=== PATIENT | male | born 1960 | race Caucasian/White ===

== ENCOUNTER 2019-05-20 15:53 | Outpatient (CLI) | payer OTHER, SELFPAY ==
[2019-05-20 16:17] LABS: Basophils # 0.1 10^3/uL (0.0-0.1); Basophils % 0.9 %; Eosinophils # 0.5 10^3/uL (0.0-0.8); Eosinophils % 6.1 %; Hematocrit 43.7 % (42.0-52.0); Hemoglobin 14.4 g/dL (11.7-16.6); Lymphocytes # 2.9 10^3/uL (0.8-4.8); Lymphocytes % 36.1 %; Mean Corpuscular Hemoglobin 31.5 pg (28.0-34.0); Mean Corpuscular Volume 95.6 fL (80-94); Mean Platelet Volume 9.1 fL (7.4-10.4); Monocytes # 0.7 10^3/uL (0.2-0.9); Monocytes % 8.8 %; Neutrophils # 3.8 10^3/uL (1.8-7.7); Neutrophils % 47.8 %; Nucleated Red Blood Cells % 0 %; Platelet Count 294 10^3/cmm (130-400); Red Blood Count 4.57 10^6/uL (4.1-5.3); Red Cell Distribution Width 13.2 % (12.1-15.1); White Blood Count 7.9 10^3/uL (4.0-10.0)
[2019-05-20 16:32] LABS: Alanine Aminotransferase 20 U/L (0-41); Albumin Level 4.2 g/dL (3.5-5.2); Alkaline Phosphatase 99 IU/L (40-130); Anion Gap 14.4 (5-19); Aspartate Amino Transferase 24 U/L (0-40); Blood Urea Nitrogen 19 mg/dL (6-20); Calcium 9.9 mg/dL (8.5-10.5); Carbon Dioxide 29 mmol/L (22-29); Chloride 105 mmol/L (98-107); Globulin 3.2 g/dL (1.3-4.6); Glomerular Filtration Rate 68.5 mL/min (90-130); Glucose 88 mg/dL (65-115); Potassium 4.4 mmol/L (3.5-5.1); Sodium 144 mmol/L (136-145); Total Bilirubin 0.2 mg/dL (0.15-1.2); Total Protein 7.4 g/dL (6.6-8.7)
== END 2019-05-20 15:54 | disposition home or self-care (01) ==
LOC: LAB 15:58
PROVIDERS: Family Provider Family Medicine; PCP Nurse Practitioner Family; Visit Provider Internal Medicine Critical Care Medicine
DX: J44.9 Chronic obstructive pulmonary disease, unspecified (principal)
CPT/HCPCS: 80053; 85025

== ENCOUNTER → 2021-09-20 09:06 | Outpatient (BNVA) | payer BC, SELFPAY | PROVIDERS: Family Provider Family Medicine; PCP Family Medicine Adult Medicine; Visit Provider Internal Medicine Critical Care Medicine | DX: J44.9 Chronic obstructive pulmonary disease, unspecified (principal); F17.210 Nicotine dependence, cigarettes, uncomplicated; J30.2 Other seasonal allergic rhinitis; J45.909 Unspecified asthma, uncomplicated; R06.02 Shortness of breath | CPT/HCPCS: 36415; 82785; 86003; 99204 ==

== ENCOUNTER 2021-11-24 11:30 | Outpatient (CLI) | payer BC, MEDICAID, SELFPAY | END 2021-11-24 11:31 | disposition home or self-care (01) | LOC: SLEEP 11-25 14:53 | PROVIDERS: Family Provider Family Medicine; PCP Family Medicine Adult Medicine; Visit Provider Internal Medicine Critical Care Medicine | DX: J44.9 Chronic obstructive pulmonary disease, unspecified (principal) | CPT/HCPCS: 94762 ==

== ENCOUNTER 2022-01-05 07:14 | Outpatient (CLI) | payer MEDICARE, BC, MEDICAID, SELFPAY ==
--- NOTE | 2022-01-05 07:22 | CT_ITS ---
WS: [id number] LDCT LUNG CANCER SCREENING TECHNIQUE: Noncontrast CT of the chest with coronal and sagittal reformatted images. CLINICAL INFORMATION: Lung cancer screening COMPARISON: None. DLP: 75.79 mGy.cm DIvol: Mean CTDIvol: 1.60 (mGy) All CT scans at [facility] use at least one of these dose optimization techniques: automat ed exposure control; mA and/or kV adjustment per patient size (includes targeted exams where dose is matched to clinical indication); or iterative reconstruction. FINDINGS: No suspicious pulmonary parenchymal opacities. Calcified granuloma RIGHT lower lobe. No mediastinal or hilar lymphadenopathy. Normal caliber thoracic aorta. Aortic calcification. Coronary calcification. No axillary lymphadenopathy.Adrenal glands are normal. Normal GE junction. Mild thoracic kyphosis. Chronic anterior wedging mid thoracic spine. CT/CT lung screening [id number] IMPRESSION: LUNG-RADS: 1-Negative FOLLOW UP: 12 Month: Continue annual screening with LDCT
--- NOTE | 2022-01-05 13:12 | PFTS_ITS ---
Date of Study:01/05/22 Date of Dictation: MECHANICS: Forced vital capacity (FVC) is reduced. Forced expiratory volume in one second (FEV1) is reduced. FEV1/FVC is reduced. FLOW VOLUME LOOP: Reduced flow at all lung volumes with significant scooping. LUNG VOLUMES: Total lung capacity (TLC) is normal. Residual volume (RV) is increased. DIFFUSING CAPACITY FOR CARBON MONOXIDE: Not measured. INTERPRETATION: The postbronchodilator spirometry is consistent with severe airflow obstruction. There is a significant postbronchodilator response. Lung volumes are consistent with air trapping. Gas exchange (DLCO) was not measured. MTDD
== END 2022-01-05 07:15 | disposition home or self-care (01) ==
LOC: RT 07:15
PROVIDERS: Family Provider Family Medicine; PCP Family Medicine Adult Medicine; Visit Provider Internal Medicine Critical Care Medicine
DX: J44.9 Chronic obstructive pulmonary disease, unspecified (principal); F17.210 Nicotine dependence, cigarettes, uncomplicated; Z12.2 Encounter for screening for malignant neoplasm of respiratory organs
CPT/HCPCS: 71271; 94060; 94618; 94726; 94729; J7611

== ENCOUNTER → 2023-02-01 13:40 | Outpatient (BNVA) | payer MEDICARE, BC, MEDICAID, SELFPAY | PROVIDERS: Family Provider Family Medicine; PCP Family Medicine Adult Medicine; Visit Provider Family Medicine Adult Medicine | DX: I10 Essential (primary) hypertension (principal); J44.9 Chronic obstructive pulmonary disease, unspecified; R94.4 Abnormal results of kidney function studies; N40.1 Benign prostatic hyperplasia with lower urinary tract symptoms; N13.8 Other obstructive and reflux uropathy | CPT/HCPCS: 80053; 84443; 85025; G0103 ==

== ENCOUNTER → 2023-03-29 14:01 | Outpatient (BNVA) | payer MEDICARE, SELFPAY | PROVIDERS: Family Provider Family Medicine; PCP Family Medicine Adult Medicine; Visit Provider Internal Medicine Pulmonary Disease | DX: J43.2 Centrilobular emphysema (principal); J82.83 Eosinophilic asthma; Z12.2 Encounter for screening for malignant neoplasm of respiratory organs | CPT/HCPCS: 99214 ==

== ENCOUNTER 2023-04-18 14:09 | Oncology outpatient (recurring) (ONCR) | payer MEDICARE, MEDICAID, SELFPAY ==
[2023-04-18 14:28] VITALS: BP 104/81; PULSE 105; RESP 18; TEMP 36.7; O2SAT 97
[2023-04-18 15:15] VITALS: BP 111/73; PULSE 82; RESP 16; TEMP 36.8; O2SAT 95
== END 2023-05-03 23:59 | disposition home or self-care (01) ==
PROVIDERS: Family Provider Family Medicine; PCP Family Medicine Adult Medicine; Visit Provider Family Medicine Adult Medicine
DX: J82.83 Eosinophilic asthma (principal)
CPT/HCPCS: 96372

== ENCOUNTER 2023-05-18 09:46 | Outpatient (CLI) | payer MEDICARE, SELFPAY ==
--- NOTE | 2023-05-18 10:00 | CT_ITS ---
WS: [id number] LDCT LUNG CANCER SCREENING HISTORY: Z87.891 - Personal history of nicotine dependence TECHNIQUE: Axial imaging performed from the apices to 1 cm below the costophrenic angles. Coronal and sagittal reformats are submitted with axial MIP series. All CT scans at [facility] use at least one of these dose optimization techniques: automated exposure control; mA and/or kV adjustment per patient size (includes targeted exams where dose is matched to clinical indication); or iterativ e reconstruction. DLP: 55.19 mGy.cm DIvol: Mean CTDIvol: 0.90 (mGy) COMPARISON: 01/05/2022 Diagnostic quality: Satisfactory Lungs: Mild pulmonary hyperexpansion. Benign granuloma in the posterior RIGHT lower lobe. Small amoun t of scarring at the lingular apex. No pneumonia. No pulmonary nodule. No endobronchial lesions. Heart: Normal size heart with no pericardial effusion.. Scattered coronary artery calcifications. Other findings: Mild atherosclerosis aorta. No mediastinal or hilar adenopathy. No adrenal mass. IMPRESSION: CT/CT lung screening [id number] LUNG-RADS: 1-Negative FOLLOW UP: 12 Month: Continue annual screening with LDCT OTHER FINDINGS (S MODIFIER): None.
== END 2023-05-18 09:47 | disposition home or self-care (01) ==
LOC: RAD 09:46
PROVIDERS: PCP Family Medicine Adult Medicine; Visit Provider Internal Medicine Pulmonary Disease
DX: Z12.2 Encounter for screening for malignant neoplasm of respiratory organs (principal); Z87.891 Personal history of nicotine dependence; J84.10 Pulmonary fibrosis, unspecified
CPT/HCPCS: 71271

== ENCOUNTER → 2023-08-10 07:53 | Outpatient (BNVA) | payer MEDICARE, MEDICAID, SELFPAY | PROVIDERS: Family Provider Family Medicine; PCP Family Medicine Adult Medicine; Visit Provider Internal Medicine Pulmonary Disease | DX: J43.2 Centrilobular emphysema (principal); J82.83 Eosinophilic asthma; J44.9 Chronic obstructive pulmonary disease, unspecified; F17.290 Nicotine dependence, other tobacco product, uncomplicated | CPT/HCPCS: 99214 ==

== ENCOUNTER 2024-03-18 12:31 | Outpatient (RCR) | payer MEDICARE, MEDICAID, SELFPAY | END 2024-04-02 23:59 | disposition home or self-care (01) | LOC: SPT 12:31 | PROVIDERS: Family Provider Family Medicine; Visit Provider Family Medicine | DX: M54.50 Low back pain, unspecified (principal); G89.29 Other chronic pain | CPT/HCPCS: 97110; 97161 ==

== ENCOUNTER 2024-03-21 16:06 | Outpatient (CLI) | payer MEDICARE, MEDICAID, SELFPAY ==
--- NOTE | 2024-03-21 16:14 | XRR_ITS ---
PROCEDURE INFORMATION: Exam: XR Left Hand Exam date and time: 03/21/2024 4:50 PM Age: 64 years old Clinical indication: Pain; Hand; Left; Additional info: L thumb mcp pain TECHNIQUE: Imaging protocol: Radiologic exam of the left hand. Views: 3 or more views. COMPARISON: No relevant prior studies available. FINDINGS: Bones/joints: No fracture or dislocation is appreciated. There are severe degenerative changes with joint space narrowing and osteophyte formation involving the 1st carpometacarpal joint. There is a lesser degree of osteoarthritis involving the articulation of the distal pole of the scaphoid with the trapezium. Mild osteoarthritic changes noted involving the 1st MCP joint and IP joints. Bony mineralization is normal. Soft tissues: Normal. XR/XR hand LT min 3V* [id number] IMPRESSION: 1. Severe osteoarthritis involving the 1st carpometacarpal joint.
--- NOTE | 2024-03-21 16:14 | XRR_ITS ---
PROCEDURE INFORMATION: Exam: XR Lumbosacral Spine Exam date and time: 03/21/2024 4:50 PM Age: 64 years old Clinical indication: Low back pain; Additional info: Chronic low back pain TECHNIQUE: Imaging protocol: Radiologic exam of the lumbosacral spine. Views: 2 or 3 views. COMPARISON: No relevant prior studies available. FINDINGS: Bones/joints: There are 5 [id number]-svm-[id number] lumbar vertebral bodies. There is a scoliotic curvature convex right. No subluxations are identified. No fractures are noted. There is disc space narrowing with osteophyte formation at L2-L3, L3-L4, L4-L5. There are degenerative changes involving the lower lumbar facets. SI joints are normal. Soft tissues: Unremarkable. XR/XR lumbar spine 2-3V* [id number] IMPRESSION: 1. Scoliotic curvature convex right. 2. Spondylosis.
== END 2024-03-21 16:07 | disposition home or self-care (01) ==
LOC: RAD 16:12
PROVIDERS: Family Provider Family Medicine; PCP Family Medicine; Visit Provider Family Medicine
DX: M48.061 Spinal stenosis, lumbar region without neurogenic claudication (principal); M41.86 Other forms of scoliosis, lumbar region; M51.360 Other intervertebral disc degeneration, lumbar region with discogenic back pain only; M25.78 Osteophyte, vertebrae; M19.042 Primary osteoarthritis, left hand; M25.742 Osteophyte, left hand
CPT/HCPCS: 72100; 73130

== ENCOUNTER 2024-04-03 06:00 | Outpatient (RCR) | payer MEDICARE, SELFPAY | END 2024-05-03 23:59 | disposition home or self-care (01) | LOC: SPT 06:00 | PROVIDERS: Family Provider Family Medicine; PCP Family Medicine; Visit Provider Family Medicine | DX: M54.50 Low back pain, unspecified (principal); G89.29 Other chronic pain | CPT/HCPCS: 97110 ==

== ENCOUNTER 2024-05-04 06:00 | Outpatient (RCR) | payer MEDICARE, SELFPAY | END 2024-05-31 23:59 | disposition home or self-care (01) | LOC: SPT 06:00 | PROVIDERS: Family Provider Family Medicine; PCP Family Medicine; Visit Provider Family Medicine | DX: M54.50 Low back pain, unspecified (principal); G89.29 Other chronic pain | CPT/HCPCS: 97110; 97164 ==

== ENCOUNTER → 2024-05-10 10:54 | Outpatient (BNVA) | payer MEDICARE, SELFPAY | PROVIDERS: Family Provider Family Medicine; PCP Family Medicine; Visit Provider Family Medicine | DX: M54.50 Low back pain, unspecified (principal); G89.29 Other chronic pain; M47.819 Spondylosis without myelopathy or radiculopathy, site unspecified; Z87.891 Personal history of nicotine dependence; I10 Essential (primary) hypertension; N40.1 Benign prostatic hyperplasia with lower urinary tract symptoms; J82.83 Eosinophilic asthma; J43.2 Centrilobular emphysema; R53.83 Other fatigue; Z12.5 Encounter for screening for malignant neoplasm of prostate; Z72.89 Other problems related to lifestyle; Z76.89 Persons encountering health services in other specified circumstances; J30.1 Allergic rhinitis due to pollen | CPT/HCPCS: 80053; 80061; 82607; 84443; 85025; G0103 ==

== ENCOUNTER 2024-05-20 09:56 | Outpatient (CLI) | payer MEDICARE, SELFPAY ==
--- NOTE | 2024-05-20 10:00 | CT_ITS ---
WS: [id number] LDCT LUNG CANCER SCREENING TECHNIQUE: Noncontrast CT of the chest with coronal and sagittal reformatted images. CLINICAL INFORMATION: perez dep kylie; 93pk yr hx; screening COMPARISON: 05/18/2023 DLP: 51.81 mGy.cm DIvol: Mean CTDIvol: 1.00 (mGy) All CT scans at [facility] use at least one of these dose optimization techniques: automated exposure control; mA and/or kV adjustment per patient size (includes targeted exams where dose is matched to clinical indication); or iterative reconstruction. FINDINGS: Mild hyperinflation. Few calcified granulomas. Wedge-shaped groundglass opacity LEFT lower lobe likely inflammatory measuring 1.7 cm. Recommend 3-month follow-up. Mild aortic calcification. No mediastinal or hilar lymphadenopathy. Coronary calcification. Mild thoracic curve and kyphosis. Hypertrophic changes thoracic spine. Adrenal glands are normal. Normal GE junction. CT/CT lung screening [id number] IMPRESSION: New wedge-shaped groundglass opacity LEFT lower lobe likely inflamm atory. Recommend 3-month follow-up. LUNG-RADS: 3-Probably Benign FOLLOW UP: 3 Month LDCT
== END 2024-05-20 09:57 | disposition home or self-care (01) ==
PROVIDERS: PCP Family Medicine; Visit Provider Family Medicine
DX: Z12.2 Encounter for screening for malignant neoplasm of respiratory organs (principal); Z87.891 Personal history of nicotine dependence; R97.20 Elevated prostate specific antigen [PSA]; R91.8 Other nonspecific abnormal finding of lung field; J84.10 Pulmonary fibrosis, unspecified; I70.0 Atherosclerosis of aorta; I25.10 Atherosclerotic heart disease of native coronary artery without angina pectoris; M43.8X4 Other specified deforming dorsopathies, thoracic region; M40.294 Other kyphosis, thoracic region; R93.7 Abnormal findings on diagnostic imaging of other parts of musculoskeletal system
CPT/HCPCS: 71271; 84154

== ENCOUNTER 2024-08-19 11:51 | Outpatient (CLI) | payer MEDICARE, SELFPAY ==
--- NOTE | 2024-08-19 12:00 | CT_ITS ---
WS: [id number] CT chest wo con [id number] HISTORY: 3 month f/u Left lung abnormal on LDCT TECHNIQUE: Axial imaging performed through the thorax. Coronal and sagittal reformats are submitted. All CT scans at [facility] use at least one of these dose optimization techniques: automated exposure control; mA and/or kV adjustment per patient size (includes targeted exams where dose is matched to clinical indication); or iterative reconstruction. CONTRAST: None DLP: 260.53 mGy.cm COMPARISON: 05/20/2024 Lungs and central airway: Previously described wedge-shaped groundglass attenuation in the LEFT lower lobe has completely resolved. There was an additional area of smaller groundglass attenuation in the LEFT lower lobe which is also resolved. Lungs are hyperinflated from chronic emphysema. Partially calcified RIGHT lower lobe 6 mm pulmonary nodule is stable. Pleura: Normal. No pleural effusion. Heart and pericardium: Normal size heart with no pericardial effusion. Mediastinum and connie: No adenopathy. Vessels: Moderate atherosclerotic plaque within the thoracic aorta. Plaque extends into the coronary arteries. Normal size pulmonary artery. Chest wall and lower neck: No soft tissue masses. Upper abdomen: Small hiatal hernia. No adrenal mass. Osseous structures: Mild thoracic spondylosis. CT/CT chest wo con [id number] IMPRESSION: 1. Complete interval resolution of the groundglass attenuation in the LEFT low er lobe since 05/20/2024. 2. Benign partially calcified granuloma RIGHT lower lobe. 3. No mediastinal or hilar adenopathy. 4. Moderate atherosclerotic plaque within the thoracic aorta and coronary eric ashvin. Recommendation: Return to annual low-dose lung screening CT evaluation.
== END 2024-08-19 11:52 | disposition home or self-care (01) ==
LOC: RAD 11:53
PROVIDERS: Family Provider Family Medicine; PCP Family Medicine; Visit Provider Family Medicine
DX: J98.4 Other disorders of lung (principal); J43.8 Other emphysema; R91.1 Solitary pulmonary nodule; I70.0 Atherosclerosis of aorta; I25.10 Atherosclerotic heart disease of native coronary artery without angina pectoris; K44.9 Diaphragmatic hernia without obstruction or gangrene; M40.294 Other kyphosis, thoracic region; J84.10 Pulmonary fibrosis, unspecified
CPT/HCPCS: 71250

== ENCOUNTER → 2024-10-21 09:00 | Outpatient (BNVA) | payer MEDICARE, SELFPAY | PROVIDERS: PCP Family Medicine; Visit Provider Student in an Organized Health Care Education/Training Program | DX: K40.90 Unilateral inguinal hernia, without obstruction or gangrene, not specified as recurrent (principal) | CPT/HCPCS: 99204 ==

== ENCOUNTER → 2024-10-25 10:26 | Outpatient (BNVA) | payer MEDICARE, SELFPAY | PROVIDERS: PCP Family Medicine; Visit Provider Family Medicine | DX: Z01.818 Encounter for other preprocedural examination (principal) | CPT/HCPCS: 80053; 85007; 85027 ==

== ENCOUNTER 2024-11-13 10:19 | Day surgery (SDC) | payer MEDICARE, SELFPAY ==
[2024-11-13] VITALS (9 sets, daily range): BP systolic 95–132; BP diastolic 60–80; PULSE 63–83; RESP 13–18; TEMP 36.2–36.6; O2SAT 94–100; BMI 23.0
--- NOTE | 2024-11-13 10:44 | ANES.PREANE2 ---
Pre-Anesthetic Assessment Height/Weight: Height 5 ft 4 in Preop Diagnosis: inguinal hernia Operation Date: 11/13/24 12:55 Proposed Procedures p RIGHT Open Inguinal Hernia Repair w/ Mesh 37305 K40.90(Right) - Braulio Pierson MD Was Beta Mary Ann taken within 24 hours: N/A Was Clonidine taken within 24 hours: N/A Social Tobacco and No alcohol Exam alert, oriented x 3 and regular rate & rhythm Airway Submandibular: within normal limits Cervical ROM: within normal limits Mallampati: Class III Comments: Comments: edentulous, white plaque on tongue Anesthetic Plan ASA status: 3 Anesthesia: General Other: No prior issues with anesthesia NPO since yesterday evening History of GERD, controlled with omeprazole COPD, current smoker Recent labs 10/25/2024 reviewed acceptable for procedure Plan for general anesthesia Medications/Allergies Home Medications ?Medication ?Instructions ?Recorded ?Confirmed ?Last Taken ?Type Portable, Battery Operated, #1 ea 01/04/22 11/04/24 Unknown Rx nebulizer, and Supplies. albuterol sulfate 2.5 mg/3 mL See Rx Instructions .Route 08/09/23 11/12/24 11/11/24 Rx (0.083 %) solution for nebulization .COMPLEX #540 mL albuterol sulfate 90 mcg/actuation 2 inh inhalation Q4H PRN shortness 02/27/24 11/12/24 11/12/24 Rx aerosol inhaler (Ventolin HFA) of breath or wheezing #54 grams umeclidinium 62.5 mcg/actuation 1 inh inhalation DAILY #30 ea 07/11/24 11/12/24 11/12/24 Rx blister powder for inhalation (Incruse Ellipta) celecoxib 200 mg capsule 200 mg PO DAILY #30 caps 10/07/24 11/12/24 11/08/24 Rx tadalafil 5 mg tablet (Cialis) 5 mg PO DAILY #30 tabs 10/07/24 11/12/24 11/08/24 Rx montelukast 10 mg tablet 10 mg PO DAILY PRN Allergy Symptoms 10/25/24 11/12/24 11/12/24 History fluticasone propionate 50 1 spray intranasal BID #16 grams 11/04/24 11/12/24 11/12/24 Rx mcg/actuation nasal spray,suspension (Allergy Relief (fluticasone)) omeprazole 40 mg capsule,delayed 40 mg PO QAM #90 caps 11/04/24 11/12/24 11/12/24 Rx release tamsulosin 0.4 mg capsule 0.4 mg PO DAILY 11/12/24 11/12/24 11/12/24 History Allergies Allergy/AdvReac Type Severity Reaction Status Date / Time lactose Allergy Intermediate ALGY-Difficulty Verified 11/12/24 15:00 Breathing COUNT INCLUDES THE [facility] Anesthesia Medical History (Updated 11/04/24 @ 13:57 by Tennille Gregorio MD) Gastroesophageal reflux disease with hiatal hernia Esophageal dysphagia Right inguinal hernia Osteoarthritis of metacarpophalangeal (MCP) joint of left thumb Lung abnormality on LDCT 2..25 LLL; f/u 5. gone--so next LDCT due 08.20.25 Abnormal PSA Eosinophilic asthma on Nucala Pain management contract signed Chronic low back pain now off hydrocodone; on celebrex; PT has helped Osteoarthritis of spine at multiple levels Hypertension Former heavy tobacco smoker Current every day vaping Sexual dysfunction BPH loc w urin obs/LUTS Disorder of diaphragm Seasonal allergic rhinitis COPD (chronic obstructive pulmonary disease) Surgical History History of hand surgery R thumb surgery after injury Hx of abdominal surgery as an had blood blister taken off abdomen History of carpal tunnel surgery bilateral Family History Father Diabetes mellitus, type 2 Grandmother Breast cancer Social History Smoking and tobacco/nicotine status: current every day tobacco/nicotine user e-cigarettes E-Cigarette Details: vaporizer device Quit status (tobacco/nicotine): has quit using Year quit tobacco: 07/2022 Started vaping Former quit date comment: Hx of 1-2 ppd X 49 years; 93pk yr hx Alcohol intake: never Substance/Drug Use: former Former substance use details: no IV; but smoked crack and did cocaine, mj in past Lives independently: Yes Household members: none Marital status: Single Number of children: 5 Highest education level completed: GED or Equivalent Current occupational status: previously employed and disabled Previous occupational history: [employer], caterpillar, [employer] Do you think of yourself as: Straight/Heterosexual Current gender identity: Male
--- NOTE | 2024-11-13 10:56 | W.PM.OPSFHP ---
Same Day Surgery H&P Indication for Procedure/HPI DATE OF PROCEDURE: November 13, 2024 CHIEF COMPLAINT/INDICATIONFOR SURGICAL PROCEDURE: right inguinal hernia PREOP DIAGNOSIS: right inguinal hernia PLANNED PROCEDURE: Operation Date: 11/13/24 12:55 Proposed Procedures p RIGHT Open Inguinal Hernia Repair w/ Mesh 23749 K40.90(Right) - Braulio Pierson MD Medications/Allergies* Home Medications ?Medication ?Instructions ?Recorded ?Confirmed ?Type montelukast 10 mg tablet 10 mg PO DAILY PRN Allergy Symptoms 10/25/24 11/12/24 History tamsulosin 0.4 mg capsule 0.4 mg PO DAILY 11/12/24 11/12/24 History Allergies/Adverse Reactions Allergy/AdvReac Type Severity Reaction Status Date / Time lactose Allergy Intermediate ALGY-Difficulty Verified 11/12/24 15:00 Breathing Pertinent History/Comorbid Conditions* Medical History (Updated 11/04/24 @ 13:57 by Tennille Gregorio MD) Gastroesophageal reflux disease with hiatal hernia Esophageal dysphagia Right inguinal hernia Osteoarthritis of metacarpophalangeal (MCP) joint of left thumb Lung abnormality on LDCT 2.17.25 LLL; f/u 5.20.25 gone--so next LDCT due 5.20.26 Abnormal PSA Eosinophilic asthma on Nucala Pain management contract signed Chronic low back pain now off hydrocodone; on celebrex; PT has helped Osteoarthritis of spine at multiple levels Hypertension Former heavy tobacco smoker Current every day vaping Sexual dysfunction BPH loc w urin obs/LUTS Disorder of diaphragm Seasonal allergic rhinitis COPD (chronic obstructive pulmonary disease) Surgical History (Updated 05/10/24 @ 10:35 by Tennille Gregorio MD) History of hand surgery R thumb surgery after injury Hx of abdominal surgery as an infant had blood blister taken off abdomen History of carpal tunnel surgery bilateral Family History (Updated 05/10/24 @ 10:34 by Tennille Gregorio MD) Diabetes mellitus, type 2 Father Breast cancer Grandmother Social History Smoking and tobacco/nicotine status: current every day tobacco/nicotine user e-cigarettes E-Cigarette Details: vaporizer device Quit status (tobacco/nicotine): has quit using Year quit tobacco: 07/2022 Started vaping Former quit date comment: Hx of 1-2 ppd X 49 years; 93pk yr hx Alcohol intake: never Substance/Drug Use: former Former substance use details: no IV; but smoked crack and did cocaine, mj in past Lives independently: Yes Household members: none Marital status: Single Number of children: 5 Highest education level completed: GED or Equivalent Current occupational status: previously employed and disabled Previous occupational history: [employer], caterpillar, [employer] patch Do you think of yourself as: Straight/Heterosexual Current gender identity: Male Pertinent Exam Findings alert, oriented x 3, clear to auscultation bilaterally, regular rate & rhythm, operative site marked and procedure specific exam findings Right inguinal hernia present. Marked right groin. Abdomen soft, nt, nd Recommendations Risks and benefits of procedure reviewed and Patient/family agree to proceed Surgery/Procedure today Coding Level of Care Code Acute Code for Chg Fwlashae
[2024-11-13] MEDS: midazolam 1 mg/mL INJ 2 mL 2 MG IVP (11:10)
[2024-11-13] MEDS: ceFAZolin 2,000 mg SDV 2000 MG IVP (11:16)
[2024-11-13] MEDS: lidocaine-epi 1% 20 mL INJ 5 ML INJECTION (11:40)
[2024-11-13] MEDS: BUPivacaine 0.25% INJ 10 mL 5 ML INJECTION (11:40)
--- NOTE | 2024-11-13 11:51 | SUR.OPER ---
ATTEMPTED LOWE INSERTION WITH 14FR COUDE CATHETER. URETHRAL STRICTURE ENCOUNTERED. NO FURTHER ATTEMPT. NO HEMATURIA. BROOK LUCERO ASSISTED BY DR SEARS.
--- NOTE | 2024-11-13 12:00 | PM.OP ---
Operative Report Date of procedure: November 13, 2024 Pre-op diagnosis: Right inguinal hernia Post-op diagnosis: same Post-op findings: Small indirect right inguinal hernia. Reduced hernia sac into the abdomen. Repaired hernia defect using plug and patch size small. Procedure done: Open right inguinal hernia repair with mesh Implants: Plug and patch mesh size small Specimens removed/disposition: N/A Pathology: none sent Surgeon: Braulio Pierson MD Floor Press Operator: N/A Anesthesia: General Estimated blood loss (mL): 10 Complications: N/A Findings: Small indirect right inguinal hernia. Reduced hernia sac into the abdomen. Repaired hernia defect using plug and patch size small. Condition: stable Disposition: same day Brief History: 64-year-old male with a symptomatic right inguinal hernia. Discussed risk and benefits and patient agreed to proceed with open right inguinal hernia repair with mesh. Marked surgical site in preop area and confirmed with the patient. Procedure: Patient brought to the OR and placed supine on the table. SCDs were placed and functioning. Preoperative ancef was administered. General anesthesia was induced. A lynne catheter placement was attempted but patient had a urethral stricture. Aborted Lynne catheter placement. No blood at meatus. The right groin was prepped and draped in the usual sterile fashion. Local infiltration at the surgical site was done using lidocaine/bupivacaine with epinephrine. A 5cm incision was carried out over the right inguinal canal. Tissue dissection was carried down to the external oblique fascia using electrocautery. The fascia was incised and the cord structures were identified. Cord structures were dissected of the hernia sac. I identified a small indirect inguinal hernia. The hernia sac was dissected and reduced into the abdomen. The plug was placed at the site of the deep inguinal ring and the posterior wall of the inguinal canal was reinforced using a mesh patch. The plug was fixed using 2-0 ethibond to the cojoint ligament and inguinal ligament with interrupted sutures. The mesh patch was sutured to the cojoint tendon and the inguinal ligament using interrupted sutures with 2-0 ethibond. The external oblique fascia was closed using 3-0 vicryl. Skin was closed using 4-0 monocryl and surgical glue. The patient woke up from anesthesia and was transferred to PACU without any complications.
--- NOTE | 2024-11-13 12:10 | PM.MISC ---
Miscellaneous Note Note: Confirmed with family (daughter) that patient's reported allergy to lactose is not a true allergy.
[2024-11-13] MEDS: oxyCODONE 5 mg IR Tab/Cap PO (13:27)
--- NOTE | 2024-11-13 13:42 | ANE.PACU2 ---
Inpatient post-anesthesia follow up: Airway intact: Yes Vital signs: Temperature 97.4 F Pulse Rate 72 Respiratory Rate 17 Blood Pressure 110/64 Pulse Oximetry 96 Oxygen Delivery Me thod Room Air Oxygen Flow Rate 10 Fraction of Inspir ed Oxygen Hydration adequate: Yes Nausea and vomiting: No Pain level: 1 Mental status: Baseline
== END 2024-11-13 13:42 | disposition home or self-care (01) ==
PROVIDERS: PCP Family Medicine; Visit Provider Student in an Organized Health Care Education/Training Program
PROC: (CPT 49505; principal; 2024-11-13 12:55)
DX: K40.90 Unilateral inguinal hernia, without obstruction or gangrene, not specified as recurrent (principal); K21.9 Gastro-esophageal reflux disease without esophagitis; J44.9 Chronic obstructive pulmonary disease, unspecified; F17.290 Nicotine dependence, other tobacco product, uncomplicated; I10 Essential (primary) hypertension
CPT/HCPCS: 49505; C1781; J0690; J1100; J1885; J2250; J2405; J2704; J3010; J3490; J7030; J9999

== ENCOUNTER → 2024-11-28 10:18 | Outpatient (BNVA) | payer MEDICARE, SELFPAY | PROVIDERS: PCP Family Medicine; Visit Provider Student in an Organized Health Care Education/Training Program | DX: K40.90 Unilateral inguinal hernia, without obstruction or gangrene, not specified as recurrent (principal) | CPT/HCPCS: 99024 ==